=== PATIENT | female | born 1990 | race Caucasian/White ===

== ENCOUNTER 2017-06-17 14:28 | Inpatient (IN) | payer OTHER ==
[~2017-06-17] VITALS: Ht 172.7 cm; Wt 113.6 kg
[~2017-06-17 14:28] MED LIST: ALBU8.5H5 INH; FERR27TA PO; ISON300T72 PO; PREN-46 PO
[2017-06-17 15:00] VITALS: BP 119/62; PULSE 95; RESP 18
[2017-06-17] MEDS: LACTATED RINGER'S 1,000 ML IV SCH ×2 (15:26→16:04)
[2017-06-17] MEDS ORDERED: OXYTOCIN 30 UNITS/LR 500 ML IV PRN (15:30)
[2017-06-17] MEDS ORDERED: CARBOPROST 250 MCG INJ IM PRN (15:30)
[2017-06-17] MEDS ORDERED: BUTORPHANOL 2 MG INJ IV PRN (15:30)
[2017-06-17] MEDS ORDERED: METHYLERGONOVINE 0.2 MG INJ IM PRN (15:30)
[2017-06-17] MEDS ORDERED: LIDOCAINE 1% (MPF) 30 ML INJ INJ PRN (15:30)
[2017-06-17] MEDS ORDERED: MISOPROSTOL 200 MCG TAB PR PRN (15:30)
[2017-06-17] MEDS ORDERED: HYDROCODONE/APAP (5/325) TAB PO PRN (15:30)
[2017-06-17] MEDS ORDERED: OXYTOCIN 30 UNITS/LR 500 ML IV SCH ×3 (15:30)
[2017-06-17 15:36] LABS: BASOPHILS % 0.2 % (0.0-2.0); EOSINOPHILS # 0.1 10^3/ul (0.0-0.5); HEMATOCRIT 37.6 % (37.0-47.0); HEMOGLOBIN 12.7 g/dl (12.0-16.0); LYMPHOCYTES # 1.8 10^3/ul (0.8-2.9); LYMPHOCYTES % 19.8 % (15.0-51.0); MEAN CORPUSCULAR HEMOGLOBIN 29.8 pg (29.0-33.0); MEAN CORPUSCULAR HGB CONC 33.8 g/dl (32.0-37.0); MEAN CORPUSCULAR VOLUME 88.3 fl (82.0-101.0); MEAN PLATELET VOLUME 11.1 fl (7.4-10.4); MONOCYTE # 0.6 10^3/ul (0.3-0.9); MONOCYTES % 6.3 % (0.0-11.0); NEUTROPHIL # 6.5 10^3/ul (1.6-7.5); NEUTROPHILS % 71.9 % (39.0-77.0); PLATELET COUNT 194 10^3/UL (140-415); RED BLOOD COUNT 4.26 10^6/ul (4.20-5.40); RED CELL DISTRIBUTION WIDTH 14.6 % (11.5-14.5); WHITE BLOOD COUNT 9.1 10^3/ul (4.8-10.8)
[2017-06-17 15:44] VITALS: Ht 172.7 cm; Wt 113.6 kg
--- NOTE | 2017-06-17 15:45 | RADRPT ---
PROCEDURE: US OB. CLINICAL INDICATION: Size and dates , post dates TECHNIQUE: Multiple sonographic images of the pelvis and gravid uterus were obtained. The images were reviewed on a PACS workstation. COMPARISON: No prior studies are available for comparison. FINDINGS: There is a single viable intrauterine gestation. Cardiac activity is present with 148 beats per min bijan. There is a vertex presentation. The placenta is fundal. There is no evidence for an abruption or placenta previa. Measurements were made in order to determine age. The results are as follows: BPD =9.7 cm HC =34.3 cm AC =36.7 cm FL =7.8 cm Estimated gestational age of approximately 39 weeks and 6 days based on ultrasound measurements. Clinical age: 40 weeks and 3 days. The estimated date of delivery is 06/18/17, based on ultrasound measurements. The EFW = 4017 g, 75.5%, based on LMP age. RPTAT: AA IMPRESSION: Single viable intrauterine gestation of approximately 39 weeks and 6 days based on ultrasound measu rements. .Jason Posada MD, Date Time Electronically viewed and signed by .Jason Posada MD, MD on 06/17/2017 15:45 .S/
[2017-06-17 15:52] LABS: INR 0.85; PROTIME 11.6 Sec (12.2-14.2); PT RATIO 0.9
[2017-06-17 15:53] LABS: PARTIAL THROMBOPLASTIN TIME 26.4 Sec (25.0-35.0)
[2017-06-17] MEDS ORDERED: AMPICILLIN 2 GM/NS (PMX) 100 ML IV ONE (16:00)
[2017-06-17] MEDS ORDERED: LACTATED RINGER'S 1,000 ML IV PRN (16:00)
[2017-06-17] MEDS ORDERED: FENTAnyl 2MCG/ML-ROPIV 0.2% 100 ML ONE (16:28)
[2017-06-17] MEDS ORDERED: MINERAL OIL LIGHT 10 ML VIAL TOP PRN (17:30)
[2017-06-17] MEDS: FENTAnyl 2MCG/ML-ROPIV 0.2% 100 ML BAG EPI SCH (18:17)
--- NOTE | 2017-06-17 18:22 | HP ---
Date/Time of Note Date/Time of Note DATE: 06/17/17 TIME: 18:16 OB - History Hx of Present Free Text/Dictation admitted C/O UC started 3 a.m. Last Menstrual Period: Sep 07, 2016 Estimated Due Date: Jun 14, 2017 : 4 Para: 3 Spontaneous : 0 Therapeutic : 0 Care: Good Care Ultrasounds: Normal mid trimester US Obstetrical Complications: None Medical Complications: None Past Family/Social History * Past Medical, Surgical, Family and Obstetric Histories reviewed from chart. Blood Type: O+ Rubella: not immune RPR/VDRL: Negative GBS Status: Unknown HBsAG: Negative OB Admission Exam Vital Signs Vital Signs Vital Signs Date Time Temp Pulse Resp B/P Pulse Ox O2 Delivery O2 Flow Rate FiO2 06/17/17 15:00 97.9 95 18 119/62 Room Air Physical Exam HEENT: WNL Heart: Rhythm Normal Lungs: Clear, Equal Abdomen: WNL Extremities: Normal Reflexes: Normal Cervical Dilatation: 3cm Effacement: 50% Station: -3 Membranes: Intact Heart Rate: 130's Accelerations: Accelerations Present Decelerations: No Decelerations Varibility: Marked Contractions on Admission: < 5 Minutes Apart Date/Time Contractions Began: June Frequency of Contractions: Every 5 minutes Duration: Over 60 seconds Intensity: Moderate Last 72 hours Lab Results CBC & BMP 06/17/17 15:20 OB Assessment/Plan Other Assessment: Term gestation Liver pain Other plan: We will continue to observe labor until vaginal delivery occurs SAHARA MORENO MD Jun 17, 2017 18:22
[2017-06-17] MEDS ORDERED: ONDANSETRON 4 MG INJ IV PRN (18:30)
[2017-06-17] MEDS ORDERED: NALOXONE (0.4 MG/ML) INJ IV PRN (18:30)
[2017-06-17] MEDS ORDERED: HYDROmorphONE 0.5 MG/0.5 ML SYG IV PRN ×2 (18:30)
[2017-06-17] MEDS ORDERED: DIPHENHYDRAMINE 50 MG INJ IV PRN (18:30)
[2017-06-17] MEDS: AMPICILLIN 1 GM/NS (PMX) 50 ML IV SCH (19:58)
[2017-06-17] MEDS ORDERED: ACETAMINOPHEN 325 MG TAB PO ONE (21:30)
--- NOTE | 2017-06-17 23:29 | QN ---
Documentation Comment requested to ARM by her OB at 1920 VE 3 cm /50%/ -3 ARM clear fluid mod amount electrode was placed BORIS COLLIER MD Jun 17, 2017 23:29
[2017-06-18] MEDS: AMPICILLIN 1 GM/NS (PMX) 50 ML IV SCH ×2 (00:08→04:00)
[2017-06-18] MEDS: LACTATED RINGER'S 1,000 ML IV SCH (00:08)
[2017-06-18] MEDS: FENTAnyl 2MCG/ML-ROPIV 0.2% 100 ML BAG EPI SCH (01:48)
[2017-06-18] MEDS ORDERED: CEFAZOLIN 2 GM/50 ML (PMX) 50 ML IVPB ONE ×2 (03:50→04:00)
--- NOTE | 2017-06-18 04:54 | LDN ---
Date/Time of Note Date/Time of Note DATE: 06/18/17 TIME: 04:52 Delivery Summary Weeks of Gestation 40w + Placenta Delivered: Spontaneously Meconium: none Episiotomy: No Perineal laceration: 2 Laceration repair: 00 ch gut Anesthesia type: Epidural Estimated blood loss: 100 Sponge & Needle done & correct: Yes All needle counts correct: Yes Any foreign bodies felt in the: No Problems: Infant Delivery Information Sex Infant Sex: female Apgars 1 Minute: 8 5 Minute: 9 Suctioning Nose & mouth suctioned at yogesh: Yes Delee suction performed: No Umbilical Cord Umbilical cord with: 3 Vessels Cord presentations: no nuchal cord Cord Blood was obtained: Yes Mother & Baby Disposition Disposition Mom & Baby to Maternity; Good: Yes Mom transferred to: Other Baby to NICU: No () BORIS COLLIER MD Jun 18, 2017 04:54
[2017-06-18] MEDS ORDERED: MISOPROSTOL 200 MCG TAB PR PRN (06:00)
[2017-06-18] MEDS ORDERED: IBUPROFEN 600 MG TAB PO SCH (06:00)
[2017-06-18] MEDS ORDERED: LANOLIN 7 GM TUBE TOP PRN (06:00)
[2017-06-18] MEDS ORDERED: OXYCODONE/ASPIRIN (4.88/325) TAB PO PRN ×2 (06:00)
[2017-06-18] MEDS ORDERED: ZOLPIDEM 5 MG TAB PO PRN (06:00)
[2017-06-18] MEDS ORDERED: WITCH HAZEL/GLYCERIN PAD PR PRN (06:00)
[2017-06-18] MEDS ORDERED: OXYTOCIN 30 UNITS/LR 500 ML IV PRN (06:00)
[2017-06-18] MEDS ORDERED: BENZOCAINE 20% 56 ML SPRAY TOP PRN (06:00)
[2017-06-18] MEDS ORDERED: CARBOPROST 250 MCG INJ IM PRN (06:00)
[2017-06-18] MEDS ORDERED: METHYLERGONOVINE 0.2 MG INJ IM PRN (06:00)
[2017-06-18 06:30] VITALS: BP 132/60; PULSE 107; RESP 20
[2017-06-18] MEDS ORDERED: HYDROCODONE/APAP (5/325) TAB PO PRN ×2 (07:00)
[2017-06-18 08:24] VITALS: BP 117/64; PULSE 98; RESP 14
[2017-06-18] MEDS: SENNA/DOCUSATE NA (8.6MG/50MG) TAB PO SCH ×2 (08:31→20:49)
[2017-06-18] MEDS ORDERED: ISONIAZID 300 MG TAB PO SCH (09:00)
[2017-06-18 11:23] VITALS: BP 115/74; PULSE 89; RESP 16
[2017-06-18 17:32] VITALS: BP 121/68; PULSE 94; RESP 16
[2017-06-18 19:45] VITALS: BP 110/59; PULSE 94; RESP 18
[2017-06-18 23:30] VITALS: BP 109/58; PULSE 91; RESP 18
[2017-06-19 03:40] VITALS: BP 116/68; PULSE 94; RESP 18
[2017-06-19 08:30] VITALS: BP 114/79; RESP 20
[2017-06-19 08:34] LABS: BASOPHILS % 0.3 % (0.0-2.0); EOSINOPHILS # 0.1 10^3/ul (0.0-0.5); EOSINOPHILS % 1.2 % (0.0-7.0); HEMATOCRIT 39.5 % (37.0-47.0); HEMOGLOBIN 12.6 g/dl (12.0-16.0); LYMPHOCYTES # 1.8 10^3/ul (0.8-2.9); LYMPHOCYTES % 17.1 % (15.0-51.0); MEAN CORPUSCULAR HEMOGLOBIN 28.8 pg (29.0-33.0); MEAN CORPUSCULAR HGB CONC 31.9 g/dl (32.0-37.0); MEAN CORPUSCULAR VOLUME 90.2 fl (82.0-101.0); MEAN PLATELET VOLUME 11.4 fl (7.4-10.4); MONOCYTE # 0.5 10^3/ul (0.3-0.9); MONOCYTES % 4.7 % (0.0-11.0); NEUTROPHIL # 8.1 10^3/ul (1.6-7.5); NEUTROPHILS % 75.8 % (39.0-77.0); PLATELET COUNT 171 10^3/UL (140-415); RED BLOOD COUNT 4.38 10^6/ul (4.20-5.40); RED CELL DISTRIBUTION WIDTH 14.8 % (11.5-14.5); WHITE BLOOD COUNT 10.7 10^3/ul (4.8-10.8)
[2017-06-19] MEDS ORDERED: INFLUENZA VIRUS VACCINE 0.5 ML SYG IM* ONE (09:00)
[2017-06-19] MEDS: SENNA/DOCUSATE NA (8.6MG/50MG) TAB PO SCH ×2 (09:00→20:50)
[2017-06-19 16:01] VITALS: BP 97/58; PULSE 93; RESP 18
--- NOTE | 2017-06-19 16:49 | DS ---
Date/Time of Note Date/Time of Note home next day DATE: 06/19/17 TIME: 16:48 Obstetrical Discharge Record Final Diagnosis Final Diagnosis: Term delivered Other Final Diagnosis S/P vaginal delivery Vaginal Delivery Obstetrical Delivery: Spontaneous, Laceration, Repaired Condition on Discharge Physical Assessment Last Vitals: see nurses notes Voiding: Yes Bowel Movement: Yes Breast: Soft, non-tender, Filling Fundus: Firm Abdomen and Incision: soft BS+ Episiotomy: perineum healing Calf Tenderness: No Patient Condition: Good SAHARA MORENO MD Jun 19, 2017 16:49
--- NOTE | 2017-06-19 17:03 | PD.PPDC ---
[employer] Discharge Instruction Provider Information Physician Information 26 y/o female had vaginal delivery Diagnosis Final Diagnosis: S/P vaginal delivery Condition Patient Condition: Good Diet Diet: Resume Regular Diet Activity/Restrictions Activity: Normal Activity May Shower Restrictions: Nothing in the Vagina Return to Work or School: Aug 03, 2017 Follow-up Follow-up with Physician: 4, Week/Weeks (in clinic ) Return to clinic for OB Instructions: Breast Tenderness Depression Comment: pelvic rest X 6 weeks SAHARA MORENO MD Jun 19, 2017 17:03
[2017-06-19] MEDS ORDERED: ACET325T40 PO (17:19)
[2017-06-19] MEDS ORDERED: ACETAMINOPHEN 325 MG TAB PO PRN (17:30)
[2017-06-19 20:20] VITALS: BP 122/73; PULSE 80; RESP 18
[2017-06-20 04:00] VITALS: BP 128/73; PULSE 77; RESP 18
[2017-06-20 08:20] VITALS: BP 121/56; PULSE 80; RESP 18
[2017-06-20] MEDS: SENNA/DOCUSATE NA (8.6MG/50MG) TAB PO SCH (08:51)
[2017-06-20] MEDS ORDERED: DIPHTH/TET/ACEL PERTUSS (ADULT) 0.5 ML VIAL IM* ONE (09:00)
[2017-06-20] MEDS ORDERED: MEASLES,MUMPS,RUBELLA VACCINE INJ SC* ONE (12:30)
== END 2017-06-20 15:01 | disposition home or self-care (01) | DRG 775 ==
LOC: OBT 14:28 → L-D 14:28 → OBT 15:00 → PP1 06-18 05:59
PROVIDERS: ADMIT Obstetrics & Gynecology; ATTEND Obstetrics & Gynecology
PROC: 10E0XZZ Delivery of Products of Conception, External Approach (ICD-10-PCS; principal; 2017-06-18)
PROC: 0KQM0ZZ Repair Perineum Muscle, Open Approach (ICD-10-PCS; 2017-06-18)
PROC: 3E033VJ Introduction of Other Hormone into Peripheral Vein, Percutaneous Approach (ICD-10-PCS; 2017-06-18)
DX: O48.0 Post-term pregnancy (principal); E66.01 Morbid (severe) obesity due to excess calories; O70.1 Second degree perineal laceration during delivery; Z3A.40 40 weeks gestation of pregnancy; O99.214 Obesity complicating childbirth; Z68.38 Body mass index [BMI] 38.0-38.9, adult; Z37.0 Single live birth
CPT/HCPCS: 76815; 85025; 85610; 85730; 86592; 86900; 86901; 87340; 90686; 90715; G0463; J0290; J0690; J2590; J3010; J7120